=== PATIENT | female | born 1940 | race Caucasian/White ===

== ENCOUNTER 2017-03-04 07:28 | Day surgery (SDC) | payer MEDICARE, OTHER ==
[2017-03-04] MEDS ORDERED: Lactated Ringers 1,000 ML IV ONE (07:56)
[2017-03-04] MEDS ORDERED: DIPRIVAN 200 MG/20 ML IV ONE (08:00)
[2017-03-04 08:09] VITALS: O2SAT 98
[2017-03-04] MEDS ORDERED: TETRACAINE 0.5% STERI-UNIT SOL OP ONE ×2 (09:00)
[2017-03-04] MEDS ORDERED: Lactated Ringers 1,000 ML IV SCH (09:00)
[2017-03-04] MEDS ORDERED: ACETAZOLAMIDE 250 MG TABLET PO ONE (09:00)
[2017-03-04] MEDS ORDERED: Ak-Dilate OPHTHALMIC*** 0.71 ML, Cyclogyl 1% OPHTH SOL 5 ML 0.71 ML, GATIFLOXACIN 0.5% ... OP ONE ×4 (09:00)
[2017-03-04] MEDS ORDERED: Zofran 4 MG/2 ML VIAL IV PRN (09:00)
[2017-03-04] MEDS ORDERED: TRANDATE 100 MG/20 ML MDV FOR DRIP IV PRN (09:00)
[2017-03-04] MEDS ORDERED: BETADINE 5% OPHTHALMIC 30 ML OP ONE (09:00)
[2017-03-04] MEDS ORDERED: LIDOCAINE HCL 1% AMPUL 5 ML IJ ONE (10:00)
[2017-03-04] MEDS ORDERED: Epinephrine Preservative Free 1 MG/ML INTRAOP ONE (10:00)
[2017-03-04] MEDS ORDERED: BSS 500 ML, Fortaz/Tazicef 1 GM** 0.2 G IO ONE ×2 (10:00)
[2017-03-04 10:18] VITALS: BP 137/71; PULSE 61
--- NOTE | 2017-03-04 11:50 | OP ---
DATE/TIME OF OPERATION: 03/04/201723 PREOPERATIVE DIAGNOSIS: Senile cataract of left eye. POSTOPERATIVE DIAGNOSIS: Senile cataract of left eye. SURGEON: Kanu Dennis MD INSTITUTIONAL NUTRITION CONSULTANT: NONE OPERATION: Cataract extraction of left eye with an intraocular lens implant. STANDARD __X___ COMPLEX ANESTHESIA: ___X___ Monitored anesthesia care in combination with topical and intra-cameral anesthesia (because of the established specific risk of reflux, arrhythmias, or an anxiety attack associated with ocular manipulation as well as difficulty of the associate property manager to manage such potentially catastrophic events while simultaneously attempting to complete the surgical procedure, it was deemed necessary for the patient's safety to have an anesthesiologist or a nurse potato peeling machine operator present during the procedure whenever possible. The anesthesiologist or the nurse potato peeling machine operator was utilized to monitor and regulate the intravenous sedation of the patient, so the patient was cooperative, relaxed, and comfortable). Topical anesthesia using Tetracaine eye drops together with intra cameral anesthesia using Lidocaine 1% MPF. The nurse was utilized to monitor the patient. COMPLICATIONS: None. BLOOD LOSS: None INDICATIONS: The patient is undergoing cataract surgery in the hopes of eliminating the visual complaints and difficulty. PROCEDURE: After arriving at the facility's outpatient surgery area, an IV was started; the patient was given 5 mg of p.o. Versed. (If an anesthesia provider was not monitoring the patient) The patient was then given topical anesthetic Tetracaine eye drops. A cotton pellet was soaked into a solution of a combination of Zymaxid 0.5%, Nilo-Synephrine 2.5% and Ocufen (other drops might have been substituted referenced in the patient's record). The pellet was inserted by the RN into the lower conjunctival cul-de-sac with a sterile forceps and left for 20 minutes. The pellet was then removed by the RN with a sterile forceps before taking the patient to the operating room. The preoperative area nurse identified the patient and marked the correct eye to be operated on. I identified the correct eye to be operated on and marked it appropriately in the outpatient surgery area. The patient was then taken into the operating room. Tetracaine eye drops were installed again in the correct eye. The eyelids and the lashes and the lid margins were scrubbed with Betadine solution. One drop of the diluted Betadine solution was placed in the conjunctival cul-de-sac for 45 seconds and then was irrigated. A drop of Tetracaine Gel was placed in the conjunctival cul-de-sac. The patient's forehead was taped to secure it during the procedure. The patient was monitored. The patient was then draped in the usual way for this procedure. An eye speculum was used to separate the eyelids. The eye was then fixated and a temporal 2.5 mm incision was made in the clear cornea temporally at the limbus. Through the incision, 0.25 cc of 1% non-preserved lidocaine was injected into the anterior chamber for intracameral anesthesia. The anterior chamber was then filled with viscoelastic. The pupil was small. I felt that it would be safer to mechanically dilate the pupil. A Malyugin ring was used at this point which dilated the pupil. That was removed at the end of the procedure prior to aspiration of the viscoelastic from the anterior chamber and posterior to the intraocular lens implant. The cataract had a great amount of cortical changes. That rendered seeing the anterior capsule difficult for a safe performance of an anterior capsulotomy. I injected an air bubble into the anterior chamber. I then injected 1 ML of vision blue solution into the anterior chamber. The vision blue solution was irrigated from the anterior chamber after 30 seconds. The anterior capsule was stained which facilitated performing the anterior capsulotomy safely. After that was completed, a cystotome was introduced into the anterior chamber and a round anterior capsulotomy was performed. The capsule was removed by a forceps. Hydrodissection was next carried utilizing a 25-gauge cannula and balanced salt solution to delineate the cortical material from the capsule and the nucleus from the cortical material. The nucleus was rotated freely into the capsular bag with no difficulty. The phaco tip of the [facility] [employer] Phacoemulsifier was introduced into the anterior chamber and two grooves were made into the nucleus 90 degrees apart. Using two spatulas resulted into the nucleus being fractured into four quadrants. The phaco tip was then used to remove each quadrant of the nucleus. Viscoelastic was used during this process to protect the corneal endothelium. Once the entire nucleus was removed, the phaco tip then was removed and the irrigation tip was introduced into the eye and the cortex was removed. The posterior capsule was polished. It was noticed that there was a tear into the posterior capsule with few vitrious strands into the pupil plan. An anterior vitrectomy was performed. A 23.00 diopter, [id number], posterior chamber lens implant, was inspected and found to be grossly normal. The implant was inserted into the implant injector cartridge; Viscoelastic again was introduced into the anterior chamber, which filled the capsular bag. The implant injector's cartridge tip was placed at the limbal wound and the posterior chamber implant was released into the capsular bag and rotated appropriately. The implant was found to be into the capsular bag and it was centered. 0.2 ml of Tri-Moxi was introduced via 27 gauge cannula into the vitreous cavity through the ciliary processes. Viscoelastic was aspirated from the anterior chamber and posterior to the intraocular lens implant from the capsular bag using the irrigating tip. The anterior chamber was irrigated and filled with 5 cc antibiotic solution (500 cc of BSS plus 2 ml of Fortaz 100 mg/ml) ( if patient was not allergic to the medication). The lips of the corneal incision were hydrated using BSS solution. The anterior chamber was checked and found to be water tight. ___X___ One drop each of antibiotic, steroid and NSAID drops (refer to chart for drops used) were placed in the conjunctival cul-de-sac of the operated eye. Patient tolerated the procedure quite well and left the operating room in satisfactory condition. DISCHARGE SUMMARY: The patient was released in stable condition. The patient and those with the patient were given an instruction sheet as of how to care for the eye after surgery as well as counseling on any abnormal laboratory studies by the postoperative RN. The patient was also given an appointment card for follow-up in the office and is to call immediately for any difficulties including but not limited to pain in the eye, decreased vision, discharge from the eye, headache and or fever. DISCHARGE DIAGNOSIS: Pseudophakia of left eye
== END 2017-03-04 10:45 | disposition home or self-care (01) ==
LOC: SDC 07:28
PROVIDERS: ATTEND Ophthalmology
PROC: 08RK3JZ Replacement of Left Lens with Synthetic Substitute, Percutaneous Approach (ICD-10-PCS; principal; 2017-03-04)
PROC: 08B53ZZ Excision of Left Vitreous, Percutaneous Approach (ICD-10-PCS; 2017-03-04)
DX: H25.9 Unspecified age-related cataract (principal)
CPT/HCPCS: 66984; 67005; C1780; 00142; 99100; J0171; J2704; A9270-GY

== ENCOUNTER 2018-11-12 11:47 | Emergency (ER) | payer MEDICARE, OTHER ==
--- NOTE | 2018-11-12 11:50 | ERPHSYRPT ---
- History of Present Illness Time Seen by Provider: 11/12/18 11:50 Source: patient, family Exam Limitations: no limitations Physician History: 78 y/o white female presents feeling hot and cold, weak and decreased appetite for 3 to 4 days. pt has had an associated cough. pt denies sore throat, she denies earaches, she denies abd pain, denies n/v/d. she denies dysuria and denies flank pain. Timing/Duration: day(s) (3 to 4 days), worse Severity: mild Associated Symptoms: cough, chills, loss of appetite, weakness, No nausea, No vomiting, No abdominal pain, No shortness of breath, No chest pain, No headaches , No syncope Allergies/Adverse Reactions: prednisone Adverse Reaction (Verified 03/04/17 07:55) Muscle Aches Home Medications: Metoprolol Tartrate 25 mg [Lopressor 25MG Tab] 50 mg PO BID 11/28/12 [ History] Albuterol Sulfate [Ventolin Hfa] 8 gm IH Q4HPRN PRN 02/27/17 [History] Phenylephrine HCl/Acetaminophn [Sinus Congestion & Pain Sftgl] 1 each PO DAILY 02/27/17 [History] Hx Tetanus, Diphtheria Vaccination/Date Given: Yes Hx Influenza Vaccination/Date Given: Yes Hx Pneumococcal Vaccination/Date Given: Yes - Review of Systems Constitutional: Chills, Weakness Eyes: No Symptoms Ears, Nose, & Throat: No Symptoms, No Ear Pain, No Throat Pain Respiratory: Cough, No Dyspnea, No Stridor, No Wheezing Cardiac: No Symptoms Abdominal/Gastrointestinal: No Symptoms, No Abdominal Pain, No Nausea, No Vomiting, No Diarrhea Genitourinary Symptoms: No Symptoms, No Dysuria, No Frequency, No Hematuria Musculoskeletal: No Symptoms Skin: No Symptoms Neurological: No Symptoms Psychological: No Symptoms Endocrine: No Symptoms Hematologic/Lymphatic: No Symptoms Immunological/Allergic: No Symptoms All Other Systems: Reviewed and Negative - Past Medical History Pertinent Past Medical History: Yes Neurological History: No Pertinent History ENT History: Cataracts Cardiac History: Hypertension Respiratory History: Asthma Endocrine Medical History: No Pertinent History Musculoskeletal History: Arthritis, Other GI Medical History: GERD History: Other Psycho-Social History: No Pertinent History Female Reproductive Disorders: No Pertinent History Other Medical History: sepsis several years ago of uncertain etiology, polymyalgia. - Past Surgical History Past Surgical History: Yes Neuro Surgical History: No Pertinent History Cardiac: No Pertinent History Respiratory: No Pertinent History Gastrointestinal: No Pertinent History Genitourinary: No Pertinent History Musculoskeletal: No Pertinent History Female Surgical History: Tubal Ligation Other Surgical History: post tubal 1965. lipoma removed from back in 2008. - Social History Smoking Status: Never smoker Exposure to second hand smoke: No Alcohol Use: None Drug Use: none Patient Lives Alone: No Significant Family History: no pertinent family hx - Nursing Vital Signs Nursing Vital Signs: Initial Vital Signs Temperature 99.8 F 11/12/18 11:58 Pulse Rate 100 H 11/12/18 11:58 Respiratory Rate 22 11/12/18 11:58 Blood Pressure 187/85 11/12/18 11:58 O2 Sat by Pulse Oximetry 95 11/12/18 11:58 Pain Scale Pain Intensity 0 - Physical Exam General Appearance: no apparent distress, alert, anxiety Eye Exam: PERRL/EOMI Ears, Nose, Throat Exam: normal ENT inspection, TMs normal, pharynx normal, moist mucous membranes Neck Exam: normal inspection, non-tender, supple, full range of motion Respiratory Exam: normal breath sounds, lungs clear, airway intact, No chest tenderness, No respiratory distress, No accessory muscle use, No rhonchi, No wheezing, No stridor Cardiovascular Exam: regular rate/rhythm, normal heart sounds, normal peripheral pulses Gastrointestinal/Abdomen Exam: soft, normal bowel sounds, No tenderness, No guarding, No rebound Pelvic Exam: not done Rectal Exam: not done Back Exam: normal inspection, normal range of motion, No CVA tenderness, No vertebral tenderness Extremity Exam: normal inspection, normal range of motion, pelvis stable Neurologic Exam: alert, oriented x 3, cooperative, financial aid manager II-XII nml as tested Skin Exam: normal color, warm, dry Lymphatic Exam: No adenopathy SpO2 Interpretation: normal O2 Delivery: Room Air - Course Nursing assessment & vital signs reviewed: Yes EKG Interpreted by Me: RATE (83), Right Harris Deviation, Other (atrial escape rhythm; no comparison ekg) Ordered Tests: Active Orders 24 hr Category Date Time Status Legal Nurse Consultant STAT Care 11/12/18 12:19 Active Clean Catch Urine Specimen STAT Care 11/12/18 12:17 Active EKG-ER Only STAT Care 11/12/18 12:30 Active IV Insertion STAT Care 11/12/18 12:17 Active Pulse Oximetry (ED) STAT Care 11/12/18 12:17 Active CHEST 1 VIEW (PORTABLE) Stat Exams 11/12/18 12:18 Completed BLOOD CULTURE Stat Lab 11/12/18 12:47 Received CBC W DIFF Stat Lab 11/12/18 12:21 Completed CMP Stat Lab 11/12/18 12:21 Completed CULTURE,URINE Stat Lab 11/12/18 13:00 Received Lactic Acid Stat Lab 11/12/18 12:21 Completed TROPONIN Q3H Lab 11/12/18 12:21 Received TROPONIN Q3H Lab 11/12/18 15:30 Ordered TROPONIN Q3H Lab 11/12/18 18:30 Ordered TROPONIN Q3H Lab 11/12/18 21:30 Ordered UA W/RFX UR CULTURE Stat Lab 11/12/18 13:00 Completed Medication Summary Discontinued Medications Generic Name Dose Route Start Last Admin Trade Name Freq PRN Reason Stop Dose Admin Sodium Chloride 1,000 mls @ 999 mls/hr 11/12/18 12:17 11/12/18 13:17 Sodium Chloride 0.9% 1000 Ml IV 11/12/18 13:17 999 mls/hr .Q1H1M STA Administration Sodium Chloride Confirm 11/12/18 13:15 Sodium Chloride 0.9% 1000 Ml Administered 11/12/18 13:16 Dose 1,000 mls @ ud .ROUTE .STK-MED ONE Lab/Rad Data: Laboratory Result Diagrams 11/12/18 12:21 11/12/18 12:21 Laboratory Results 11/12/18 11/12/18 11/12/18 Range/Units 13:00 12:50 12:21 WBC (4.0-10.5) K/mm3 RBC (4.1-5.4) M/mm3 Hgb (12.0-16.0) gm/dl Hct (35-47) % MCV (78-100) fl MCH (26-32) pg MCHC (32-36) g/dl RDW (11.5-14.0) % Plt Count (150-450) K/mm3 MPV (6-9.5) fl Gran % (36.0-66.0) % Eos # (Auto) (0-0.5) Absolute Lymphs (auto) (1.0-4.6) Absolute Monos (auto) (0.0-1.3) Lymphocytes % (24.0-44.0) % Monocytes % (0.0-12.0) % Eosinophils % (0.00-5.0) % Basophils % (0.0-0.4) % Absolute Granulocytes (1.4-6.9) Basophils # (0-0.4) Sodium 135 L (137-145) mmol/L Potassium 3.7 (3.5-5.1) mmol/L Chloride 100 (98-107) mmol/L Carbon Dioxide 25 (22-30) mmol/L Anion Gap 13.5 (5-15) MEQ/L BUN 21 H (7-17) mg/dL Creatinine 1.35 H (0.52-1.04) mg/dL Estimated GFR 40.3 ML/MIN Glucose 120 H (74-106) mg/dL Lactic Acid (0.4-2.0) Calcium 9.2 (8.4-10.2) mg/dL Total Bilirubin 1.40 H (0.2-1.3) mg/dL AST 35 (14-36) U/L ALT 20 (0-35) U/L Alkaline Phosphatase 110 (38-126) U/L Serum Total Protein 7.6 (6.3-8.2) g/dL Albumin 4.0 (3.5-5.0) g/dL Urine Color ANISH (YELLOW) Urine Appearance CLOUDY (CLEAR) Urine pH 5.0 (5-6) Ur Specific [place] 1.019 (1.005-1.025) Urine Protein 100 (Negative) Urine Ketones TRACE (NEGATIVE) Urine Blood MODERATE (0-5) Jorge Luis/ul Urine Nitrite POSITIVE (NEGATIVE) Urine Bilirubin NEGATIVE (NEGATIVE) Urine Urobilinogen 4 (0-1) mg/dL Ur Leukocyte Esterase LARGE (NEGATIVE) Urine WBC (Auto) 51-100 (0-5) /HPF Urine RBC (Auto) 6-10 (0-2) /HPF U Epithel Cells (Auto) FEW (FEW) /HPF Urine Bacteria (Auto) MANY (NEGATIVE) /HPF U Non-Squamous Epi Cells RARE (FEW) /HPF Urine Mucus (Auto) SLIGHT (NEGATIVE) /HPF Urine Culture Reflexed YES (NO) Urine Glucose NEGATIVE (NEGATIVE) mg/dL Influenza Type A Ag NEGATIVE (NEGATIVE) Influenza Type B Ag NEGATIVE (NEGATIVE) RSV (PCR) NEGATIVE (Negative) Group A Strep Antibody NEGATIVE (NEGATIVE) 11/12/18 11/12/18 Range/Units 12:21 12:21 WBC 14.1 H (4.0-10.5) K/mm3 RBC 4.45 (4.1-5.4) M/mm3 Hgb 13.5 (12.0-16.0) gm/dl Hct 41.1 (35-47) % MCV 92.4 (78-100) fl MCH 30.3 (26-32) pg MCHC 32.8 (32-36) g/dl RDW 12.8 (11.5-14.0) % Plt Count 149 L (150-450) K/mm3 MPV 12.2 H (6-9.5) fl Gran % 85.5 H (36.0-66.0) % Eos # (Auto) 0.01 (0-0.5) Absolute Lymphs (auto) 0.53 L (1.0-4.6) Absolute Monos (auto) 1.46 H (0.0-1.3) Lymphocytes % 3.8 L (24.0-44.0) % Monocytes % 10.4 (0.0-12.0) % Eosinophils % 0.1 (0.00-5.0) % Basophils % 0.2 (0.0-0.4) % Absolute Granulocytes 12.06 H (1.4-6.9) Basophils # 0.03 (0-0.4) Sodium (137-145) mmol/L Potassium (3.5-5.1) mmol/L Chloride (98-107) mmol/L Carbon Dioxide (22-30) mmol/L Anion Gap (5-15) MEQ/L BUN (7-17) mg/dL Creatinine (0.52-1.04) mg/dL Estimated GFR ML/MIN Glucose (74-106) mg/dL Lactic Acid 1.0 (0.4-2.0) Calcium (8.4-10.2) mg/dL Total Bilirubin (0.2-1.3) mg/dL AST (14-36) U/L ALT (0-35) U/L Alkaline Phosphatase (38-126) U/L Serum Total Protein (6.3-8.2) g/dL Albumin (3.5-5.0) g/dL Urine Color (YELLOW) Urine Appearance (CLEAR) Urine pH (5-6) Ur Specific [place] (1.005-1.025) Urine Protein (Negative) Urine Ketones (NEGATIVE) Urine Blood (0-5) Jorge Luis/ul Urine Nitrite (NEGATIVE) Urine Bilirubin (NEGATIVE) Urine Urobilinogen (0-1) mg/dL Ur Leukocyte Esterase (NEGATIVE) Urine WBC (Auto) (0-5) /HPF Urine RBC (Auto) (0-2) /HPF U Epithel Cells (Auto) (FEW) /HPF Urine Bacteria (Auto) (NEGATIVE) /HPF U Non-Squamous Epi Cells (FEW) /HPF Urine Mucus (Auto) (NEGATIVE) /HPF Urine Culture Reflexed (NO) Urine Glucose (NEGATIVE) mg/dL Influenza Type A Ag (NEGATIVE) Influenza Type B Ag (NEGATIVE) RSV (PCR) (Negative) Group A Strep Antibody (NEGATIVE) - Progress Progress: improved, re-examined Progress Note: 11/12/18 13:44 cxr-no acute chest findings Counseled pt/family regarding: lab results, diagnosis, need for follow-up, rad results - Departure Time of Disposition: 13:44 Departure Disposition: Home Clinical Impression: UTI (urinary tract infection) Condition: Stable Critical Care Time: No Referrals: KATHE MEDRANO [Primary Care Provider] - Additional Instructions: drink plenty of fluids. follow up with primary doctor for further management Prescriptions: Ciprofloxacin [Cipro 500 MG] 500 mg PO BID #20 tablet
[2018-11-12] MEDS ORDERED: Sodium Chloride 0.9% 1000 ML 1,000 ML IV STA (12:17)
[2018-11-12 13:00] LABS: BASOPHIL % 0.2 % (0.0-0.4); Basophil (Absolute #) 0.03 (0-0.4); Eosinophil % 0.1 % (0.00-5.0); Eosinophil (Absolute #) 0.01 (0-0.5); Granulocyte Absolute (ANC) 12.06 (1.4-6.9); Granulocytes % 85.5 % (36.0-66.0); Hematocrit 41.1 % (35-47); Hemoglobin 13.5 gm/dl (12.0-16.0); Lymphocyte (Absolute #) 0.53 (1.0-4.6); Lymphocytes % 3.8 % (24.0-44.0); Mean Cell Volume 92.4 fl (78-100); Mean Corpuscular Hemoglobin 30.3 pg (26-32); Mean Corpuscular Hgb Concent. 32.8 g/dl (32-36); Mean Platelet Volume 12.2 fl (6-9.5); Monocyte (Absolute #) 1.46 (0.0-1.3); Monocytes % 10.4 % (0.0-12.0); Platelet Count 149 K/mm3 (150-450); Red Blood Count 4.45 M/mm3 (4.1-5.4); Red Cell Distribution Width 12.8 % (11.5-14.0); White Blood Count 14.1 K/mm3 (4.0-10.5)
[2018-11-12 13:11] LABS: ANION GAP 13.5 MEQ/L (5-15); BILIRUBIN,TOTAL 1.4 mg/dL (0.2-1.3); Calcium 9.2 mg/dL (8.4-10.2); Creatinine 1 1.35 mg/dL (0.52-1.04); Potassium 3.7 mmol/L (3.5-5.1); Total Protein 7.6 g/dL (6.3-8.2)
[2018-11-12] MEDS ORDERED: Sodium Chloride 0.9% 1000 ML 1,000 ML ONE (13:15)
[2018-11-12 13:23] LABS: Appearance CLOUDY (CLEAR); Bacteria MANY /HPF (NEGATIVE); Bilirubin NEGATIVE (NEGATIVE); Blood MODERATE Ery/ul (0-5); Epithelial Cells FEW /HPF (FEW); Glucose NEGATIVE (NEGATIVE); Ketones TRACE (NEGATIVE); Leukocyte Esterase LARGE (NEGATIVE); Mucus SLIGHT /HPF (NEGATIVE); Nitrite POSITIVE (NEGATIVE); Non-Squamous Epithelial Cells RARE /HPF (FEW); Protein,Urine Dip 100 (Negative); Specific Gravity 1.019 (1.005-1.025); Urobilinogen 4 mg/dL (0-1); WBC 51-100 /HPF (0-5)
--- NOTE | 2018-11-12 13:26 | XRAY ---
Indication: Fever, cough, and chills. Comparison: November 30, 2012. Portable chest rotated and is clear. Heart is not enlarged for AP portable technique. Bony thorax intact again with mild degenerative changes. Impression: Nonacute chest.
[2018-11-12 13:42] LABS: Group A Strep NEGATIVE (NEGATIVE); INFLUENZA A NEGATIVE (NEGATIVE); INFLUENZA B NEGATIVE (NEGATIVE); RESPIRATORY SYNCTIAL VIRUS NEGATIVE (Negative)
[2018-11-12] MEDS ORDERED: ROCEPHIN 1 Gm-D5w 50 ml Bag** 1 G/50 ML IVPB IV STA (14:18)
[2018-11-12] MEDS ORDERED: ROCEPHIN 1 Gm-D5w 50 ml Bag** 1 G/50 ML IVPB IV ONE (14:22)
[2018-11-12 14:29] LABS: Slide Review 1 YES
[2018-11-12 14:58] VITALS: BP 173/93; PULSE 74; O2SAT 99
== END 2018-11-12 15:07 | disposition home or self-care (01) ==
LOC: ED 11:47
DX: N39.0 Urinary tract infection, site not specified (principal); I10 Essential (primary) hypertension; J45.909 Unspecified asthma, uncomplicated; K21.9 Gastro-esophageal reflux disease without esophagitis; M19.90 Unspecified osteoarthritis, unspecified site; M35.3 Polymyalgia rheumatica
CPT/HCPCS: 36000; 36415; 71045; 80053; 81001; 83605; 84484; 85025; 87040; 87077; 87086; 87186; 87631; 87651; 93005; 93041; 96360; 96365; 99284; J0696

== ENCOUNTER 2018-11-12 17:16 | Observation (INO) | payer MEDICARE, OTHER ==
--- NOTE | 2018-11-12 17:53 | ERPHSYRPT ---
- History of Present Illness Time Seen by Provider: 11/12/18 17:40 Source: patient Exam Limitations: no limitations Patient Subjective Stated Complaint: pt seen at this facility earlier today for fever chills and cough, pt was diagnosed with UTI and discharged home. pt has returned at request of Dr Bacon for an elevated troponin. pt denies any shortness of breath and/or chest pain. at this time pt only complains of headache. Triage Nursing Assessment: pt is aox3, pupils perrl, pt appears in no distress, afebrile, resps easy and non labored, lung sounds are clear throughout all lopez, radial pulses are strong and equal, heart sounds strong and regular, abd soft and non tender with palpation, bowel sounds are present and normoactive x4, no edema appreciated, pedal pulses strong and regular, cap refill < 3 seconds, pt skin pink warm dry. Physician History: 78 y/o white female returns to ED. pt was just discharged from here a short while ago. the lab called me at 1620 to let me know the troponin ordered 4 hours earlier was not run. i had discharged pt to home after reviewing her lab work. there was only UTI. no sig red flags. i had assumed it was normal. i told pt this when i called her at home to let her know what happened and to return to ED. pt has never had cp. she does not have cp now. Timing/Duration: today Modifying Factors: Improves With: nothing Associated Symptoms: denies symptoms Allergies/Adverse Reactions: prednisone Adverse Reaction (Verified 11/12/18 17:39) Muscle Aches Home Medications: Metoprolol Tartrate 25 mg [Lopressor 25MG Tab] 100 mg PO BID 11/28/12 [ History] Albuterol Sulfate [Ventolin Hfa] 8 gm IH Q4HPRN PRN 02/27/17 [History] Hx Tetanus, Diphtheria Vaccination/Date Given: No Hx Influenza Vaccination/Date Given: Yes Hx Pneumococcal Vaccination/Date Given: Yes Immunizations Up to Date: Yes - Review of Systems Constitutional: Weakness Eyes: No Symptoms Ears, Nose, & Throat: No Symptoms Respiratory: Cough Cardiac: No Symptoms Abdominal/Gastrointestinal: No Symptoms Genitourinary Symptoms: No Symptoms Musculoskeletal: No Symptoms Skin: No Symptoms Neurological: No Symptoms Psychological: No Symptoms Endocrine: No Symptoms Hematologic/Lymphatic: No Symptoms Immunological/Allergic: No Symptoms All Other Systems: Reviewed and Negative - Past Medical History Pertinent Past Medical History: Yes Neurological History: No Pertinent History ENT History: Cataracts Cardiac History: Hypertension Respiratory History: Asthma Endocrine Medical History: No Pertinent History Musculoskeletal History: Arthritis, Other GI Medical History: GERD History: Other Psycho-Social History: No Pertinent History Female Reproductive Disorders: No Pertinent History Other Medical History: sepsis several years ago of uncertain etiology, polymyalgia. - Past Surgical History Past Surgical History: Yes Neuro Surgical History: No Pertinent History Cardiac: No Pertinent History Respiratory: No Pertinent History Gastrointestinal: No Pertinent History Genitourinary: No Pertinent History Musculoskeletal: No Pertinent History Female Surgical History: Tubal Ligation Other Surgical History: post tubal 1965. lipoma removed from back in 2008. - Social History Smoking Status: Never smoker Exposure to second hand smoke: No Alcohol Use: None Drug Use: none Patient Lives Alone: No Significant Family History: no pertinent family hx - Female History Hx Now: No - Nursing Vital Signs Nursing Vital Signs: Initial Vital Signs Temperature 99.2 F 11/12/18 17:21 Pulse Rate 104 H 11/12/18 17:21 Respiratory Rate 18 11/12/18 17:21 Blood Pressure 184/96 11/12/18 17:21 O2 Sat by Pulse Oximetry 95 11/12/18 17:21 Pain Scale Pain Intensity 0 - Physical Exam General Appearance: no apparent distress, alert Eye Exam: PERRL/EOMI Ears, Nose, Throat Exam: normal ENT inspection, moist mucous membranes Neck Exam: normal inspection, non-tender, supple, full range of motion Respiratory Exam: normal breath sounds, lungs clear, respiratory distress, airway intact, No chest tenderness Cardiovascular Exam: regular rate/rhythm, normal heart sounds, normal peripheral pulses Gastrointestinal/Abdomen Exam: soft, normal bowel sounds, No tenderness Pelvic Exam: not done Rectal Exam: not done Back Exam: normal inspection Extremity Exam: normal inspection, normal range of motion, pelvis stable Neurologic Exam: alert, oriented x 3, cooperative, combat systems operator II-XII nml as tested Skin Exam: normal color, warm, dry Lymphatic Exam: No adenopathy SpO2 Interpretation: normal SpO2: 95 O2 Delivery: Room Air - Course Nursing assessment & vital signs reviewed: Yes EKG Interpreted by Me: RATE (107), Sinus Rhythm, Sinus Tach (mild), NORMAL AXIS , Non-specific ST Changes, Other (comparison ekg 1307 today shows resolution of intravascular conduction delay and persistent rbbb) Ordered Tests: Active Orders 24 hr Category Date Time Status Felt Strip Finisher STAT Care 11/12/18 17:31 Active EKG-ER Only STAT Care 11/12/18 17:31 Active IV Insertion STAT Care 11/12/18 17:31 Active TROPONIN Q3H Lab 11/12/18 17:15 Completed TROPONIN Q3H Lab 11/12/18 20:45 Ordered TROPONIN Q3H Lab 11/12/18 23:45 Ordered Lab/Rad Data: Laboratory Results 11/12/18 Range/Units 17:15 Troponin I 0.110 H* (0.000-0.034) ng/mL - Progress Progress: improved, pain not gone completely Progress Note: 11/12/18 18:[address] seaman(hand spray operator). i reviewed pt hx, condition, lab and ekg. he states ok to admit here, repeat ekg, troponins and obtain echocardiogram in am. 11/12/18 19:[address] michael at 1848. 11/12/18 19:04 dr. michael returned call. i reviewed pt hx, condition, lab and ekg results with him. he accepts pt for admission. will continue troponin series and order cardiac echo in am per dr. seaman's recommendation Discussed with : Liz Michael Counseled pt/family regarding: diagnosis, need for follow-up, rad results - Departure Departure Disposition: Observation Clinical Impression: UTI (urinary tract infection), Elevated troponin Condition: Stable Critical Care Time: No Referrals: KATHE MICHAEL [Primary Care Provider] -
[2018-11-12] MEDS ORDERED: HYDROCODONE-ACETAMIN 2.5-108/5 ML SOLUTION PO STA (19:08)
[2018-11-12] MEDS ORDERED: HYDROCODONE-ACETAMIN 2.5-108/5 ML SOLUTION ONE (19:19)
[2018-11-12] MEDS ORDERED: Sodium Chloride 0.9% 1000 ML 1,000 ML IV SCH (19:41)
[2018-11-12] MEDS ORDERED: TYLENOL 325 MG PO PRN (19:41)
[2018-11-12] MEDS ORDERED: Zofran 4 MG/2 ML VIAL IV PRN (20:05)
[2018-11-12] MEDS ORDERED: ROCEPHIN 1 Gm-D5w 50 ml Bag** 1 G/50 ML IVPB IV ONE (20:12)
[2018-11-12] MEDS: Lopressor 50 MG PO SCH (22:15)
[2018-11-13 06:05] LABS: BASOPHIL % 0.5 % (0.0-0.4); Basophil (Absolute #) 0.05 (0-0.4); Eosinophil % 1.4 % (0.00-5.0); Eosinophil (Absolute #) 0.13 (0-0.5); Granulocyte Absolute (ANC) 6.57 (1.4-6.9); Hematocrit 36.5 % (35-47); Hemoglobin 11.6 gm/dl (12.0-16.0); Lymphocyte (Absolute #) 1.08 (1.0-4.6); Lymphocytes % 11.7 % (24.0-44.0); Mean Cell Volume 93.6 fl (78-100); Mean Corpuscular Hemoglobin 29.7 pg (26-32); Mean Corpuscular Hgb Concent. 31.8 g/dl (32-36); Mean Platelet Volume 12.1 fl (6-9.5); Monocyte (Absolute #) 1.43 (0.0-1.3); Monocytes % 15.4 % (0.0-12.0); Platelet Count 146 K/mm3 (150-450); Red Cell Distribution Width 12.8 % (11.5-14.0); White Blood Count 9.3 K/mm3 (4.0-10.5)
[2018-11-13 06:22] LABS: ANION GAP 10.9 MEQ/L (5-15); Calcium 8.6 mg/dL (8.4-10.2); Creatinine 1 1.24 mg/dL (0.52-1.04)
[2018-11-13] MEDS: HYDROCODONE-ACETAMIN 2.5-108/5 ML SOLUTION PO PRN ×2 (07:17→13:24)
[2018-11-13] MEDS ORDERED: Ventolin Hfa MDI IH PRN (09:14)
[2018-11-13] MEDS ORDERED: PROVENTIL COMMON CANISTER IH PRN (09:17)
--- NOTE | 2018-11-13 09:25 | SSS ---
DISCHARGE DIAGNOSES: 1) URINARY TRACT INFECTION. 2) ELEVATED TROPONINS. HISTORY: The patient is a 78 year-old white female who presented to the emergency room after having chills and sweats. She thought she was getting ill and she thought might have the flu. She presented herself to the emergency room where she was found to have a urinary tract infection. She was given IV antibiotics and sent home with a prescription. Apparently however the labs came back a little later positive on her troponins. The emergency room doctor contacted Dr. Hill, a local qa consultant, and had a discussion with him about admission here or being transferred up to [facility]. The qa consultant felt that she could be monitored here with troponins overnight and echocardiogram in the morning. When I examined the patient in the morning she was completely symptom free other than a cough which she had developed on Friday. She has coughed since that time nonproductive. She feels better in regards to back pain that she had when she originally came in after the IV antibiotics and IV fluids. She had not had a chance to get the antibiotic filled yet and essentially was called back to the emergency room to be seen with the elevated troponin. PAST MEDICAL/SURGICAL HISTORY: The patient's medical history is fairly unremarkable other than hypertension for which she takes metoprolol. She has not seen a qa consultant previously although she reports her mother had seen Dr. Hill. Her history is otherwise significant for gastroesophageal reflux disease and fibromyalgia. She had a sepsis episode a couple years ago which she has recovered nicely from. She had tubal ligation and lipoma removed from her back surgically. ALLERGIES: NKDA. PHYSICAL EXAMINATION: The patient's vital signs on admission with temperature 99.2F, pulse 104, respiratory rate 18, blood pressure 184/96. O2 saturation 95% on room air. HEENT: Normocephalic, atraumatic. Pupils equal round reactive to light. Extraocular movements intact. Oropharynx is pink and moist. NECK: Supple without lymphadenopathy, thyromegaly or JVD. CHEST: Clear to auscultation. HEART: Regular rate and rhythm without murmurs, rubs or gallops. ABDOMEN: Soft. No palpable masses. There was previously some mild costovertebral angle tenderness but the patient has none to compression this morning. EXTREMITIES: Without cyanosis, clubbing or edema. NEUROLOGIC: The patient is alert and oriented x3. LAB DATA AND TESTS: Revealed elevated troponins which continue to rise despite the patient being completely symptom free. She has been ranging between 0.110 to 0.141 and most recently was elevated to above that at 0.7. The patient's sugar was 97, BUN 22, creatinine 1.24. Electrolytes were normal. Her white count was 9,300, hemoglobin 11.6, PLT count 146,000. The patient had urine showing specific gravity of 1.019, large leukocytes, positive nitrite, 51 to 100 white blood cells per high power field. The patient's white count the day before was 14,100 prior to the antibiotics. Her group A strep was negative. Influenza A, B and respiratory syncytial virus were all negative. She had a lactic acid 1.0. She had a chest x-ray which showed nonacute. Her EKG showed normal sinus rhythm with what appeared to be intraventricular conduction delay consistent with elevated right bundle branch block pattern. There was otherwise no significant ST or T-wave elevation or inversion noted on her EKG's. HOSPITAL COURSE: The patient was felt to be ready for discharge home or for transfer to [facility] if the qa consultant feels that needs to be followed further with further work up. She does still have pending echocardiogram and we will contact Dr. Hill prior to her being discharged to be sure he feels that she is okay to be discharged at this time. We will otherwise continue her metoprolol and she will be placed on Bactrim DS for urinary tract infection pending culture reports. She will have a follow up in my office in one week and we have contacted Dr. Hill to see when he wants to see her either as transfer to another facility for further cardiac evaluation or to be discharged home and followed up as an outpatient.
[2018-11-13] MEDS ORDERED: ROCEPHIN 1 Gm-D5w 50 ml Bag** 1 G/50 ML IVPB IV SCH (10:00)
[2018-11-13] MEDS: Lopressor 50 MG PO SCH (10:04)
[2018-11-13 13:44] VITALS: O2SAT 95
--- NOTE | 2018-11-13 15:25 | ECHO ---
Transthoracic echocardiographic examination and color Doppler was done on 11/13/2018. INDICATION: Elevated troponin I, fatigue. IMPRESSION: 1) THE LEFT VENTRICLE WAS ONLY PARTIALLY VISUALIZED. ESTIMATED GLOBAL LEFT VENTRICULAR EJECTION FRACTION IS AROUND 50%. 2) COLOR FLOW STUDY DEMONSTRATED MILD MITRAL REGURGITATION. 3) THERE IS ALSO MODERATE TRICUSPID REGURGITATION. RIGHT VENTRICULAR SYSTOLIC PRESSURE OF 39 MM OF MERCURY. 4) TISSUE DOPPLER STUDY OF THE LATERAL MITRAL ANNULUS SUGGESTIVE OF LEFT VENTRICULAR DIASTOLIC DYSFUNCTION. This is a fairly limited study because of a limited acoustic window.
[2018-11-13 16:54] VITALS: BP 198/85; PULSE 73
== END 2018-11-13 16:35 | disposition home or self-care (01) ==
LOC: ED 17:16 → MED SURG 19:53
PROVIDERS: ADMIT Family Medicine; ATTEND Family Medicine
DX: N39.0 Urinary tract infection, site not specified (principal); R79.89 Other specified abnormal findings of blood chemistry; I10 Essential (primary) hypertension; I45.10 Unspecified right bundle-branch block; Z79.899 Other long term (current) drug therapy
CPT/HCPCS: 36000; 36415; 71045; 80048; 80053; 81001; 83605; 84484; 85025; 87040; 87077; 87086; 87186; 87631; 87651; 93005; 93041; 93268; 93306; 94762; 96360; 96365; 99284; 99285; G0378; J0696; A9270-GY

== ENCOUNTER 2019-10-11 05:52 | Day surgery (SDC) | payer MEDICARE, OTHER ==
[2019-10-11] MEDS ORDERED: Lactated Ringers 1,000 ML IV ONE (06:53)
[2019-10-11] MEDS: Lactated Ringers 1,000 ML IV SCH (06:57)
[2019-10-11] MEDS ORDERED: DIPRIVAN 200 MG/20 ML IV ONE ×2 (08:00→08:19)
[2019-10-11] MEDS ORDERED: APRESOLINE 20 MG/ML INJ ONE (08:16)
[2019-10-11 09:15] VITALS: O2SAT 96
[2019-10-11 09:22] VITALS: BP 157/80; PULSE 60
--- NOTE | 2019-10-12 07:58 | OP ---
SURGERY DATE/TIME: 10/11/2019 0801 PREOPERATIVE DIAGNOSIS: History of positive Cologuard. POSTOPERATIVE DIAGNOSIS: Normal colon. PROCEDURE: Colonoscopy. SURGEON: Dr. Williamson. ANESTHESIA: MAC. Medications given by anesthesia department. HISTORY: The patient is a 79 year-old white female presenting now for colonoscopy due to history of positive Cologuard testing. The patient was apprised of the risks of the procedure including the risk of perforation, phlebitis, untoward reaction to medication, bleeding and missed lesions. The patient verbalized her understanding and desired to have the procedure performed. DESCRIPTION OF PROCEDURE: The patient was given the medications by the anesthesia department. She had continuous pulse oximetry, ECG monitoring, intermittent blood pressure monitoring, and tidal CO2 monitoring during the examination. She was placed in the left lateral decubitus position. A digital rectal examination was performed and revealed normal anal sphincter tone and no masses. The flexible Olympus pediatric colonoscope was used to intubate the rectum. A view of the colon was developed sequentially to the cecum. Upon insertion and withdrawal, including a retroflex view in the rectum, no mucosal lesions were encountered. The scope was removed from the patient who tolerated the procedure well and was sent back to OP recovery in good condition. The prep was noted to be fair to good.
== END 2019-10-11 09:30 | disposition home or self-care (01) ==
LOC: SDC 05:52
PROVIDERS: ATTEND Family Medicine
DX: R19.5 Other fecal abnormalities (principal); I10 Essential (primary) hypertension; M19.90 Unspecified osteoarthritis, unspecified site; Z79.899 Other long term (current) drug therapy
CPT/HCPCS: 99100; J0360; J2704